=== PATIENT | male | born 1950 | race Caucasian/White ===

== ENCOUNTER 2018-01-29 11:35 | Emergency (ER) | payer MEDICARE, BC ==
[2018-01-29 12:09] VITALS: RESP 18
--- NOTE | 2018-01-29 12:42 | ED ---
General Adult HPI - General Chief complaint: Recheck/Abnormal Lab/Rx Stated complaint: Blood thinner is to thin Time Seen by Provider: 01/29/18 12:00 Source: patient, RN notes reviewed Mode of arrival: ambulatory Limitations: no limitations - History of Present Illness Initial comments: This is a 67-year-old male who presents to the emergency department stating that he was contacted by his doctor because his INR was elevated. Patient states the did not tell him how high his INR was. Patient states he has had no symptoms at all per patient denies any sites of bleeding. Patient denies any bruising. Patient denies any black or bloody stools. Patient denies any difficulty breathing or shortness of breath patient denies any headache. - Related Data Home Medications Medication Instructions Recorded Confirmed Metoprolol Succinate [Toprol Xl] 50 mg PO DAILY 01/29/18 01/29/18 Omeprazole [PriLOSEC] 20 mg PO AC-BID 01/29/18 01/29/18 Warfarin [Coumadin] 10 mg PO HS 01/29/18 01/29/18 Allergies Allergy/AdvReac Type Severity Reaction Status Date / Time codeine Allergy Unknown Verified 01/29/18 12:54 Review of Systems ROS Statement: Those systems with pertinent positive or pertinent negative responses have been documented in the HPI. ROS Other: All systems not noted in ROS Statement are negative. Past Medical History Past Medical History: Atrial Fibrillation, COPD, Hyperlipidemia, Hypertension History of Any Multi-Drug Resistant Organisms: None Reported Past Surgical History: Hernia Repair Past Psychological History: No Psychological Hx Reported Smoking Status: Current every day smoker Past Alcohol Use History: Occasional Past Drug Use History: None Reported General Exam - General Exam Comments Initial Comments: GENERAL: Patient is well-developed and well-nourished. Patient is nontoxic and well- hydrated and is in no acute distress. ENT: Neck is soft and supple. No significant lymphadenopathy is noted. Oropharynx is clear. Moist mucous membranes. Neck has full range of motion without eliciting any pain. EYES: The sclera were anicteric and conjunctiva were pink and moist. Extraocular movements were intact and pupils were equal round and reactive to light. Eyelids were unremarkable. PULMONARY: Unlabored respirations. Good breath sounds bilaterally. No audible rales rhonchi or wheezing was noted. CARDIOVASCULAR: There is a regular rate and rhythm without any murmurs gallops or rubs. ABDOMEN: Soft and nontender with normal bowel sounds. SKIN: Skin is clear with no lesions or rashes and otherwise unremarkable. NEUROLOGIC: Patient is alert and oriented x3. Cranial nerves II through XII are grossly intact. Motor and sensory are also intact. Normal speech, volume and content. Symmetrical smile. MUSCULOSKELETAL: Normal extremities with adequate strength and full range of motion. LYMPHATICS: No significant lymphadenopathy is noted PSYCHIATRIC: Normal psychiatric evaluation. Limitations: no limitations Course Vital Signs 01/29/18 12:05 Temperature 98.3 F Pulse Rate 52 L Respiratory 18 Rate Blood Pressure 127/80 O2 Sat by Pulse 96 Oximetry Medical Decision Making - Medical Decision Making INR is greater than 10 psychiatric the patient vitamin K I did check with Dr. Asad latham he was in agreement with this he was. Patient is to follow-up with Dr. minor on Thursday - Lab Data Result diagrams: 01/29/18 12:30 01/29/18 12:30 Lab Results 01/29/18 01/29/18 01/29/18 Range/Units 12:30 12:30 12:30 WBC 6.0 (3.8-10.6) k/uL RBC 5.19 (4.30-5.90) m/uL Hgb 15.8 (13.0-17.5) gm/dL Hct 46.3 (39.0-53.0) % MCV 89.2 (80.0-100.0) fL MCH 30.4 (25.0-35.0) pg MCHC 34.1 (31.0-37.0) g/dL RDW 14.2 (11.5-15.5) % Plt Count 157 (150-450) k/uL Neutrophils % 58 % Lymphocytes % 28 % Monocytes % 7 % Eosinophils % 4 % Basophils % 1 % Neutrophils # 3.5 (1.3-7.7) k/uL Lymphocytes # 1.7 (1.0-4.8) k/uL Monocytes # 0.4 (0-1.0) k/uL Eosinophils # 0.2 (0-0.7) k/uL Basophils # 0.1 (0-0.2) k/uL PT 100.6 H (9.0-12.0) sec INR >10.0 H* (<1.2) APTT 42.9 H (22.0-30.0) sec Sodium 143 (137-145) mmol/L Potassium 4.4 (3.5-5.1) mmol/L Chloride 110 H (98-107) mmol/L Carbon Dioxide 25 (22-30) mmol/L Anion Gap 8 mmol/L BUN 17 (9-20) mg/dL Creatinine 0.87 (0.66-1.25) mg/dL Est GFR (CKD-EPI)AfAm >90 (>60 ml/min/1.73 sqM) Est GFR (CKD-EPI)NonAf >90 (>60 ml/min/1.73 sqM) Glucose 102 H (74-99) mg/dL Calcium 9.3 (8.4-10.2) mg/dL Total Bilirubin 0.3 (0.2-1.3) mg/dL AST 29 (17-59) U/L ALT 31 (21-72) U/L Alkaline Phosphatase 51 (38-126) U/L Total Protein 7.9 (6.3-8.2) g/dL Albumin 4.1 (3.5-5.0) g/dL Disposition Clinical Impression: Coagulopathy Disposition: HOME SELF-CARE Condition: Good Instructions: Warfarin (By mouth) Additional Instructions: Patient should hold his Coumadin until he follows up with his physician on Thursday. Is patient prescribed a controlled substance at d/c from ED?: No Referrals: Janine Chau MD [Primary Care Provider] - 1-2 days Time of Disposition: 14:07
[2018-01-29 12:52] LABS: Basophils # (A) 0.1 k/uL (0-0.2); Basophils % (A) 1 %; Eosinophils # (A) 0.2 k/uL (0-0.7); Eosinophils % (A) 4 %; HCT 46.3 % (39.0-53.0); HGB 15.8 gm/dL (13.0-17.5); Lymphocytes # (A) 1.7 k/uL (1.0-4.8); Lymphocytes % (A) 28 %; MCH 30.4 pg (25.0-35.0); MCHC 34.1 g/dL (31.0-37.0); MCV 89.2 fL (80.0-100.0); Mean Platelet Volume 8.5; Monocytes # (A) 0.4 k/uL (0-1.0); Monocytes % (A) 7 %; Neutrophils # (A) 3.5 k/uL (1.3-7.7); Neutrophils % (A) 58 %; Platelet Count 157 k/uL (150-450); RBC 5.19 m/uL (4.30-5.90); RDW 14.2 % (11.5-15.5)
[2018-01-29 13:03] LABS: ALT 31 U/L (21-72); AST 29 U/L (17-59); Albumin 4.1 g/dL (3.5-5.0); Alkaline Phosphatase 51 U/L (38-126); Anion Gap 8 mmol/L; Blood Urea Nitrogen 17 mg/dL (9-20); Calcium 9.3 mg/dL (8.4-10.2); Carbon Dioxide 25 mmol/L (22-30); Chloride 110 mmol/L (98-107); Glucose 102 mg/dL (74-99); Potassium 4.4 mmol/L (3.5-5.1); Sodium 143 mmol/L (137-145); Total Bilirubin 0.3 mg/dL (0.2-1.3); Total Protein 7.9 g/dL (6.3-8.2)
[2018-01-29 13:39] LABS: Partial Thromboplastin Time 42.9 sec (22.0-30.0); Prothrombin Time 100.6 sec (9.0-12.0)
[2018-01-29 13:48] LABS: INR >10.0 (<1.2)
[2018-01-29] MEDS ORDERED: PHYTONADIONE ORAL 5 MG/5 ML ORAL.SYRG PO STA (14:05)
[2018-01-29 14:46] VITALS: BP 129/85; PULSE 59; TEMP 97.7
== END 2018-01-29 14:46 | disposition home or self-care (01) ==
LOC: EC 11:35
DX: D68.9 Coagulation defect, unspecified (principal); I48.91 Unspecified atrial fibrillation; I10 Essential (primary) hypertension; F17.200 Nicotine dependence, unspecified, uncomplicated; Z88.5 Allergy status to narcotic agent; Z79.01 Long term (current) use of anticoagulants; Z79.899 Other long term (current) drug therapy
CPT/HCPCS: 36415; 80053; 85025; 85610; 85730; 99283

== ENCOUNTER → 2018-03-06 | Outpatient (CLI) | payer MEDICARE, BC ==
--- NOTE | 2018-03-07 10:29 | MR ---
EXAMINATION TYPE: MR cervical spine wo con DATE OF EXAM: 03/06/2018 COMPARISON: None HISTORY: 67-year-old male cramping in back and Abdominal Pain TECHNIQUE: Multiplanar, multisequence images of the cervical spine were acquired. FINDINGS: No craniocervical junction abnormalities, predental space widening, or prevertebral soft tissue swell ing. Reversal of the normal cervical lordosis but with preserved alignment. Mild to moderate multilevel degenerative disc disease with variable disc desiccation and disc osteoph yte complex formation. Multiple levels of ligamentum flavum thickening with hypertrophic facet degenerative change and addit ional uncovertebral joint arthropathy. No suspicious bone marrow replacement. At C2-C3, mild facet arthropathy without canal or foraminal stenosis. At C3-C4, broad-based disc osteophyte complex causes mild spinal canal stenosis with minimal abutment on the ventral cord. There is uncovertebral joint and facet degenerative change mildly narrowing the neuroforamen. At C4-C5, uncovertebral joint and facet degenerative change contributes to moderate left and mild rig ht neuroforaminal stenosis without spinal canal stenosis. At C5-C6, broad-based disc osteophyte complex with uncovertebral joint and facet degenerative change. Additional ligamentum flavum thickening. Changes result in moderate bilateral neuroforaminal stenosi s with mild overall spinal canal stenosis but no cord compression. At C6-C7, similar changes are present with moderate right and telw-bg-duprldci left neuroforaminal st enosis. Mild spinal canal stenosis without cord compression or cord deformity. At C7-T1, mild posterior disc bulge without significant canal or foraminal stenosis. Mild right-sided facet arthropathy is present. No prevertebral or paravertebral soft tissue abnormality. IMPRESSION: 1. Mild to moderate multilevel degenerative disc disease with disc osteophyte complex formation and d isc desiccation as well as ligamentum flavum thickening and facet/uncovertebral joint arthropathy thr oughout. 2. Changes result in mild spinal canal stenoses at C3-C4, C5-C6, and C6-C7. There may be abutment of the ventral cord at all these levels but no cord compression or canal compromise. 3. Variable mild neuroforaminal stenoses as outlined above, moderate on the left at C4-C5, on both si hue at C5-C6 and on the right at C6-C7.
== END ==
LOC: RADMRIMAIN 09:42
PROVIDERS: ATTEND Physician Assistant Medical
DX: M48.02 Spinal stenosis, cervical region (principal); M99.71 Connective tissue and disc stenosis of intervertebral foramina of cervical region; M50.30 Other cervical disc degeneration, unspecified cervical region; M46.92 Unspecified inflammatory spondylopathy, cervical region
CPT/HCPCS: 72141

== ENCOUNTER → 2018-04-09 | Outpatient (CLI) | payer MEDICARE, BC ==
[2018-04-09 09:22] LABS: INR 1.7 (<1.2); Partial Thromboplastin Time 31.4 sec (22.0-30.0); Prothrombin Time 16.8 sec (9.0-12.0)
[2018-04-09 16:19] LABS: Calcium 9.2 mg/dL (8.7-10.3); Magnesium 1.8 mg/dL (1.5-2.4)
[2018-04-09 16:28] LABS: T4, Free (Free Thyroxine) 0.9 ng/dL (0.80-1.80)
== END ==
LOC: LABWHC1 04-08 11:17
PROVIDERS: ATTEND Psychiatry & Neurology Neurology
DX: M62.81 Muscle weakness (generalized) (principal); M79.10 Myalgia, unspecified site; R25.2 Cramp and spasm; R53.83 Other fatigue
CPT/HCPCS: 36415; 82306; 82310; 82533; 82550; 82607; 83735; 84439; 84443; 85610; 85730

== ENCOUNTER → 2018-04-30 | Outpatient (CLI) | payer MEDICARE, BC ==
--- NOTE | 2018-05-05 09:44 | P.ARTDOP ---
Arterial Doppler LOWER EXTREMITY ARTERIAL DOPPLER: DATE OF SERVICE: 04/30/2018 Reason for study: Bilateral leg pain. Doppler waveforms: Multiphasic bilaterally throughout. Pulse volume recording: []. Pressure gradients: None. Ankle-brachial indices: Greater than 1 bilaterally. Toe pressures: [] on the right, [] on the left Impression: Normal study.
== END ==
LOC: RADUSWWP 13:40
PROVIDERS: ATTEND Family Medicine
DX: M79.604 Pain in right leg (principal); M79.605 Pain in left leg; R25.2 Cramp and spasm
CPT/HCPCS: 93922

== ENCOUNTER → 2018-07-21 | Outpatient (CLI) | payer MEDICARE, BC ==
[2018-07-21 13:31] LABS: HGB 14.5 gm/dL (13.0-17.5); MCH 29.1 pg (25.0-35.0); MCHC 31.5 g/dL (31.0-37.0); MCV 92.3 fL (80.0-100.0); Platelet Count 166 k/uL (150-450); RBC 4.99 m/uL (4.30-5.90); RDW 14.5 % (11.5-15.5); WBC 6.1 k/uL (3.8-10.6)
[2018-07-21 13:41] LABS: Anion Gap 6 mmol/L; Blood Urea Nitrogen 16 mg/dL (9-20); Carbon Dioxide 26 mmol/L (22-30); Chloride 109 mmol/L (98-107); Magnesium 1.9 mg/dL (1.6-2.3); Potassium 4.8 mmol/L (3.5-5.1); Sodium 141 mmol/L (137-145)
== END | disposition home or self-care (01) ==
LOC: LABPAT 12:09
PROVIDERS: ATTEND Internal Medicine Interventional Cardiology
DX: Z01.812 Encounter for preprocedural laboratory examination (principal); I48.1 Persistent atrial fibrillation
CPT/HCPCS: 36415; 80051; 82565; 83735; 84520; 85027

== ENCOUNTER 2018-07-28 07:55 | Day surgery (SDC) | payer BC, MEDICARE ==
[2018-07-26 09:51] VITALS: BMI 35.2
[~2018-07-28 07:55] MED LIST: ALPRAZolam 0.25 MG TAB PO PRN; ALPRAZolam 0.5 MG TAB PO PRN; ASPIRIN 325 MG TAB PO STA; ATORVASTATIN 80 MG TAB PO STA; NITROGLYCERIN SL TABS 0.4 MG TAB SUBLINGUAL PRN; SODIUM CHLORIDE 0.9% 1,000 ML in EMPTY BAG 1 BAG IV ONE
[2018-07-28 08:19] VITALS: TEMP 97.9
[2018-07-28] MEDS ORDERED: HEPARIN SODIUM 1,000 UN/ML (10ML VL) ONE (08:26)
[2018-07-28] MEDS ORDERED: VERAPAMIL 2.5 MG/ML 2 ML AMP ONE (08:26)
[2018-07-28] MEDS ORDERED: LIDOCAINE 1% INJ 10MG/ML (20 ML MDV) ONE (08:26)
[2018-07-28] MEDS ORDERED: fentaNYL (PF) 50 MCG/ML 2 ML AMP ONE (08:26)
[2018-07-28 08:48] LABS: Prothrombin Time 10.9 sec (9.0-12.0)
[2018-07-28] MEDS ORDERED: LIDOCAINE 1% INJ 10MG/ML (20 ML MDV) SQ ONE (09:07)
[2018-07-28] MEDS ORDERED: fentaNYL (PF) 50 MCG/ML 2 ML AMP IVP ONE (09:07)
[2018-07-28] MEDS ORDERED: VERAPAMIL SYRINGE (5 MG/10 ML) INTRAARTER ONE (09:09)
[2018-07-28] MEDS ORDERED: HEPARIN SODIUM 1,000 UN/ML (10ML VL) IV ONE (09:15)
[2018-07-28] MEDS ORDERED: IOPAMIDOL-370 125ML BTL INJ ONE (09:32)
[2018-07-28] MEDS ORDERED: RX INFO: IV CONTRAST WAS GIVEN 1 EACH MISC MISCELLANE PRN (09:35)
[2018-07-28] MEDS ORDERED: SODIUM CHLORIDE 0.9% 1,000 ML IV SCH (09:45)
[2018-07-28] MEDS ORDERED: WARFARIN 5 MG TAB PO SCH (09:45)
[2018-07-28 10:20] VITALS: RESP 18
--- NOTE | 2018-07-28 10:49 | CC ---
CARDIAC CATHETERIZATION REPORT Mr. Perez is a 67-year-old male with known history of hypertension, history of chronic tobacco use and chronic persistent atrial fibrillation, who has been complaining of progressive dyspnea. He underwent a myocardial perfusion imaging that revealed impaired left ventricular systolic function with inferior wall defect. In view of that, recommendations were made regarding cardiac catheterization. The procedure as well as the risks and complications were discussed with the patient who is in full understanding and agreement. 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 Using Xylocaine anesthesia in the Seldinger technique a 6-[place]izen [place] sheath was introduced in the right radial artery. Selective right and left coronary angiography was performed using 5- [place] 3.5 bend right and left Chapin catheter. Multiple views of the coronary artery including hemiaxial views were obtained. Following that 5-[place]izen [place] tight pigtail catheter was introduced in the left ventricle and a 30-degree PAUL view of the left ventricle was obtained. Following that, catheter and sheaths were removed. Hemostasis was obtained with deployment of a TR band. There was no immediate complication. The patient was returned to room in stable condition. Of note, the patient received 5000 units of intravenous heparin as well as intra-arterial verapamil. FINDINGS: LEFT MAIN: This is a large-sized vessel bifurcating in left circumflex, left anterior descending artery. Left main coronary artery has no evidence of high-grade stenosis. LEFT ANTERIOR DESCENDING ARTERY: This is a large-sized vessel reaching toward the apex with a wraparound apex segment giving rise to a large diagonal branch proximally. The left anterior descending artery has mild intimal disease of 10% to 20% in the mid segment without any evidence of high-grade stenosis. LEFT CIRCUMFLEX: This is a codominant vessel large in caliber giving rise to a very proximal obtuse marginal branch distally bifurcating into PDA and posterolateral segment and branches. The left circumflex as well as branches have no evidence of obstructive coronary artery disease. RIGHT CORONARY ARTERY: This is a moderately-sized codominant vessel giving rise to a PDA. The right coronary artery in mid segment has 20% to 30% plaque without any evidence of high-grade stenosis. LEFT VENTRICULOGRAM: Left ventriculogram is performed in 30-degree PAUL view revealed global hypokinesis with ejection fraction of 35% to 40% There was no significant mitral regurgitation. HEMODYNAMICS: There was no gradient across the aortic valve. The left ventricular end- diastolic pressure was 8 to 10 mmHg. CONCLUSION: 1. Mild coronary disease involving the LAD and the right coronary artery. 2. Moderately severely impaired left ventricular systolic function. RECOMMENDATION: In view of finding anatomy, the etiology of his cardiomyopathy appears to be nonischemic. I will recommend maximizing his medical therapy and depending on his progress, further recommendation will be made. Those findings and recommendation were discussed with the patient and his family who are in full understanding and agreement. Duration of procedure is 16 minutes. MMODL / IJN: [id number] /
[2018-07-28 11:29] VITALS: BP 138/72; PULSE 85
[2018-07-28] MEDS ORDERED: BACLOFEN 10 MG TAB PO SCH (16:00)
[2018-07-28] MEDS ORDERED: NON-FORMULARY DRUG (Omeprazole 20 MG) PO SCH (17:30)
[2018-07-29] MEDS ORDERED: METOPROLOL SUCCINATE (ER) 50 MG TAB.ER.24H PO SCH (09:00)
[2018-07-29] MEDS ORDERED: MULTIVITAMINS, THERA 1 EACH TAB PO SCH (12:00)
[2018-07-31] MEDS ORDERED: WARFARIN 2 MG TAB PO SCH (09:35)
== END 2018-07-28 14:25 | disposition home or self-care (01) ==
LOC: CATHCVL 07:55
PROVIDERS: ATTEND Internal Medicine Interventional Cardiology
DX: I25.10 Atherosclerotic heart disease of native coronary artery without angina pectoris (principal); I48.1 Persistent atrial fibrillation; Z79.01 Long term (current) use of anticoagulants; Z79.899 Other long term (current) drug therapy; F17.210 Nicotine dependence, cigarettes, uncomplicated; I10 Essential (primary) hypertension; Z88.5 Allergy status to narcotic agent; I42.8 Other cardiomyopathies
CPT/HCPCS: 85610; 93458

== ENCOUNTER → 2019-10-04 | Outpatient (CLI) | payer MEDICARE, BC ==
[2019-10-04 10:45] LABS: African American GFR (CKD) >90 (>60 ml/min/1.73 sqM); Blood Urea Nitrogen 19 mg/dL (9-20); Non-African American GFR(CKD) 87 (>60 ml/min/1.73 sqM)
--- NOTE | 2019-10-04 12:32 | CT ---
EXAMINATION TYPE: CT angio chest DATE OF EXAM: 10/04/2019 COMPARISON: Prior CTA dated 05/21/2009 HISTORY: Follow up Aneurysm CT DLP: 674.9 mGycm Automated exposure control for dose reduction was used. CONTRAST: CTA scan of the thorax is performed with IV Contrast, patient injected with 100 mL of Isovue 370, pul monary embolism protocol. MIP images are created and reviewed. 3D reconstructed images are created on an independent workstation and reviewed. FINDINGS: LUNGS: The lungs are grossly clear, there is no concerning parenchymal mass or nodule identified. T here is no pleural effusion or pneumothorax seen. The tracheobronchial tree is patent. AORTA: The root of the aorta measures approximately 4.2 cm which is same as on prior exam, proximal ascending aorta measures 4.4 cm, proximal descending aorta 3.2 cm, the aorta measures at the level of the aortic hiatus approximately 3 cm.. MEDIASTINUM: There is satisfactory enhancement of the pulmonary artery and its branches, there is no CT evidence for pulmonary embolism. There are no greater than 1 cm hilar or mediastinal lymph nodes. No pericardial effusion is seen. The heart is enlarged. Suspect there is left atrial enlargement. Pulmonary artery is dilated, correlate for possible pulmonary artery hypertension. OTHER: There is an exophytic cyst at the upper pole the right kidney measuring 6.7 cm. Adrenal gland s are somewhat prominent appearance. IMPRESSION: AORTIC ANEURYSM. CORRELATE FOR PULMONARY ARTERY HYPERTENSION. CARDIOMEGALY. THERE MAY BE ADRENAL HYPE RPLASIA.
== END | disposition home or self-care (01) ==
LOC: RADCTMAIN 09:56
PROVIDERS: ATTEND Internal Medicine Interventional Cardiology
DX: I51.7 Cardiomegaly (principal); I77.810 Thoracic aortic ectasia; Z88.5 Allergy status to narcotic agent
CPT/HCPCS: 82565; 84520; 71275; 36415; Q9967

== ENCOUNTER → 2020-10-15 | Outpatient (CLI) | payer MEDICARE, BC ==
[2020-10-15 12:10] LABS: African American GFR (CKD) >90 (>60 ml/min/1.73 sqM); Blood Urea Nitrogen 21 mg/dL (9-20); Non-African American GFR(CKD) 81 (>60 ml/min/1.73 sqM)
--- NOTE | 2020-10-15 16:28 | CT ---
CT CHEST FOR PULMONARY EMBOLISM. EXAMINATION TYPE: CT angio chest DATE OF EXAM: 10/15/2020 INDICATION: Thoracic aortic aneurysm. Irregular heartbeat per patient. CT DLP: 956.2 mGycm, Automated exposure control for dose reduction was used. CONTRAST: Patient injected with 100 mL of Isovue 370. COMPARISON: 10/04/2019 TECHNIQUE: CT of the chest is performed on a spiral scan at 2 mm thick sections. Study is performed with intravenous contrast timed for evaluation of thoracic aneurysm. This will limit additional port ions of the evaluation. 3-D MIP images reconstructed by the technologist are reviewed on the compute r in the coronal and sagittal planes. FINDINGS: No mediastinal or hilar adenopathy enlarged by CT criteria is evident. The main pulmonary artery di ameter at the bifurcation is 2.6 cm. Aorta: The aorta at the aortic root measures 4.1 cm. Previous measurement 4.2 cm. Ascending thoracic aorta at the level of the main pulmonary artery is 4.2 cm. Previous measurement 4.4 cm. Transverse di mension aortic arch measures 3.1 cm. The aorta at the diaphragm measures 2.9 cm. Previous measurement 3.0 cm. There is a 0.4 cm nodule within the periphery of the right anterior lung. Series 4 image 15. This was present previously. Limited CT section through the upper abdomen e. There is a large cyst again evident at the right toby l superior pole measuring 6.6 cm and 11 Hounsfield units IMPRESSIONS: 1. Stable thoracic aortic aneurysm. 2. Stable right lung nodule
== END | disposition home or self-care (01) ==
LOC: RADCTMAIN 11:01
PROVIDERS: ATTEND Internal Medicine Interventional Cardiology
DX: I71.2 Thoracic aortic aneurysm, without rupture (principal); R91.1 Solitary pulmonary nodule
CPT/HCPCS: 82565; 84520; 71275; 36415; Q9967

== ENCOUNTER → 2021-10-22 | Outpatient (CLI) | payer MEDICARE, BC ==
--- NOTE | 2021-10-22 13:33 | CT ---
EXAMINATION TYPE: CT angio chest DATE OF EXAM: 10/22/2021 COMPARISON: 10/15/2020 HISTORY: 71-year-old male I71.2, Thoracic aortic aneurysm w/o rupture TECHNIQUE: Contiguous axial scanning of the chest performed without and with IV Contrast, patient inj ected with 100 mL of Isovue 370. Coronal/sagittal MIP reconstructions performed. 3-D reconstructions generated on dedicated workstation. CT DLP: 1150.80 mGycm Automated exposure control for dose reduction was used. FINDINGS: The heart is borderline to mildly enlarged. Prominent epicardial fat pad. No pericardial effusion. Mildly aneurysmal aortic root at 4.0 cm, unchanged. Aneurysmal ascending aorta and 4.5 cm, unchanged. Mild atherosclerotic arch calcifications with conventional branching anatomy. Upper descending thoracic aorta aneurysmal at 3.7 cm. Lower descending thoracic aorta aneurysmal and 3.0 cm, unchanged. No evidence for aortic dissection. Large caliber to the main right and left pulmonary arteries measuring up to 3.7 cm. No thoracic lymphadenopathy by CT size criteria. Mild centrilobular emphysema. Some subpleural hazy density posteriorly suggesting dependent atelectas is. Stable 4 mm posterior right midlung pulmonary nodule along the major fissure, axial image 61. 5 mm pulmonary nodule superior segment right lower lobe, axial image 65 not clearly seen previously. This can be reassessed at follow-up. 4 mm pulmonary nodule left mid lung along the major fissure unchanged. Focal patchy opacity inferior lingula is new. This could represent atelectasis or developing infiltra te. Correlate with patient's symptoms. Mild diffuse central bronchial wall thickening. Visualized upper abdomen shows stable nodular thickening of the left adrenal gland suggesting underly ing adrenal hyperplasia. Partially visualized 6.5 cm cyst upper pole right kidney. Anterior splenule again noted. Bones: Anterior endplate spondylosis mid and lower thoracic spine with mild to moderate degenerative disc disease. IMPRESSION: 1. STABLE MILD ANEURYSM AORTIC ROOT AT 4.0 CM. UNCHANGED ANEURYSM ASCENDING AORTA AT 4.5 CM AND DESCE NDING THORACIC AORTA MEASURING UP TO 3.7 CM SUPERIORLY. 3.0 CM DISTALLY. 2. BORDERLINE TO MILD CARDIOMEGALY. 3. COPD WITH MILD EMPHYSEMA. SUSPECT UNDERLYING PULMONARY ARTERIAL HYPERTENSION. 4. A FEW SCATTERED PULMONARY NODULES ARE LARGELY STABLE. HOWEVER, A 5 MM SUPERIOR SEGMENT RIGHT LOWER LOBE PULMONARY NODULE IS NOT CLEARLY SEEN ON THE PRIOR STUDY. REASSESS AT A 6 MONTH FOLLOW-UP.
== END | disposition home or self-care (01) ==
LOC: RADCTMAIN 10:52
PROVIDERS: ATTEND Internal Medicine Interventional Cardiology
DX: I71.2 Thoracic aortic aneurysm, without rupture (principal); J43.9 Emphysema, unspecified
CPT/HCPCS: 82565; 84520; 71275; 36415; Q9967

== ENCOUNTER → 2023-01-20 | Outpatient (CLI) | payer MEDICARE, BC ==
[2023-01-19 14:45] LABS: African American GFR (CKD) >90 (>60 ml/min/1.73 sqM); Blood Urea Nitrogen 20 mg/dL (9-20); Non-African American GFR(CKD) 81 (>60 ml/min/1.73 sqM)
--- NOTE | 2023-01-20 08:34 | CT ---
EXAMINATION TYPE: CT angio chest CT DLP: 1453.8 mGycm, Automated exposure control for dose reduction was used. DATE OF EXAM: 01/19/2023 4:15 PM COMPARISON: CT most recent 10/22/2021. CLINICAL INDICATION:Male, 72 years old with history of I71.2 THORACIC AORTIC ANEURYSM; f/u on thoraci c aneurysm- monitoring aneurysm. TECHNIQUE/CONTRAST: CTA scan of the thorax is performed without and with IV Contrast, patient injected with 100 cc mL of Isovue 370, MIP images are created and reviewed these are created on a separate workstation.. FINDINGS: Lungs/Pleura: No evidence of focal consolidation, pleural effusion or pneumothorax. Similar anterior right upper lobe pulmonary nodule measuring 4 mm. Series 6 image 69. Stable intrafissural lymph node in the right upper lobe near the major fissure versus subpleural nodule measuring 5 mm series 6 image 76. Left intrafissural lymph node along the left major fissure series 6 image 64. Stable left lower lobe medial 5 mm pulmonary nodule series 6 image 81 Mild paraseptal and centrilobular emphysema cruz es. Airway: Large airways are patent. Heart: Mildly enlarged for size with mild to moderate coronary artery atherosclerosis. Vasculature: No evidence for intramural hematoma on noncontrast imaging. No evidence of intimal flap to suggest dissection. No aneurysm identified. Scattered atherosclerotic disease. Mediastinum: No gross evidence of adenopathy. Musculoskeletal: No acute osseous abnormalities Soft Tissues: Unremarkable. Lower neck: No significant findings. Upper Abdomen: Simple appearing right renal cyst. Similar thickening of the adrenal glands left great er than right. IMPRESSION: 1. Ascending thoracic aorta ectasia up to 4.6 cm. No evidence for aneurysm. No evidence for dissecti on or pulmonary embolus. 2. Stable pulmonary nodules no new or enlarging pulmonary nodules. 3. Mild emphysema changes. 4. Cardiomegaly with mild to moderate coronary artery atherosclerosis. 5. Similar probable adenomatous hypertrophy changes of the adrenal glands.
== END | disposition home or self-care (01) ==
LOC: RADCTMAIN 13:03
PROVIDERS: ATTEND Internal Medicine Interventional Cardiology
DX: I71.20 Thoracic aortic aneurysm, without rupture, unspecified (principal); R91.8 Other nonspecific abnormal finding of lung field; J43.2 Centrilobular emphysema; I25.10 Atherosclerotic heart disease of native coronary artery without angina pectoris; I51.7 Cardiomegaly
CPT/HCPCS: 82565; 84520; 71275; 36415; Q9967

== ENCOUNTER 2023-07-14 07:13 | Day surgery (SDC) | payer MEDICARE, BC ==
[~2023-07-14 07:13] MED LIST changes: -ATORVASTATIN 80 MG TAB PO STA; -SODIUM CHLORIDE 0.9% 1,000 ML in EMPTY BAG 1 BAG IV ONE; +SODIUM CHLORIDE 0.9% 1,000 ML in EMPTY BAG 1 BAG IV SCH
[2023-07-14 07:34] LABS: Glucose,Whole Blood 124 mg/dL (70-110)
[2023-07-14 07:45] LABS: Basophils # (A) 0.1 k/uL (0-0.2); Basophils % (A) 1 %; Eosinophils # (A) 0.3 k/uL (0-0.7); Eosinophils % (A) 4 %; HCT 50.7 % (39.0-53.0); HGB 16.3 gm/dL (13.0-17.5); Lymphocytes % (A) 27 %; MCH 28.9 pg (25.0-35.0); MCHC 32.1 g/dL (31.0-37.0); MCV 89.9 fL (80.0-100.0); Mean Platelet Volume 9.6; Monocytes # (A) 0.4 k/uL (0-1.0); Monocytes % (A) 6 %; Neutrophils # (A) 4.3 k/uL (1.3-7.7); Neutrophils % (A) 59 %; Platelet Count 175 k/uL (150-450); RBC 5.64 m/uL (4.30-5.90); RDW 15.1 % (11.5-15.5); WBC 7.3 k/uL (3.8-10.6)
[2023-07-14 07:49] LABS: INR 1.4 (<1.2); Prothrombin Time 14.5 sec (10.0-12.5)
[2023-07-14 07:59] VITALS: RESP 16; TEMP 97.9
[2023-07-14 08:03] LABS: African American GFR (CKD) 85 (>60 ml/min/1.73 sqM); Anion Gap 7 mmol/L; Blood Urea Nitrogen 24 mg/dL (9-20); Calcium 9.2 mg/dL (8.4-10.2); Carbon Dioxide 25 mmol/L (22-30); Chloride 108 mmol/L (98-107); Glucose 102 mg/dL (74-99); Non-African American GFR(CKD) 74 (>60 ml/min/1.73 sqM); Potassium 4.7 mmol/L (3.5-5.1); Sodium 140 mmol/L (137-145)
[2023-07-14] MEDS: SODIUM CHLORIDE 0.9% 1,000 ML IV ONE (08:17)
[2023-07-14] MEDS ORDERED: fentaNYL (PF) 50 MCG/ML 2 ML AMP ONE (08:54)
[2023-07-14] MEDS ORDERED: LIDOCAINE 1% INJ 10MG/ML (20 ML MDV) ONE (08:54)
[2023-07-14] MEDS ORDERED: VERAPAMIL 2.5 MG/ML 2 ML AMP ONE (08:54)
[2023-07-14] MEDS ORDERED: HEPARIN SODIUM 1,000 UN/ML (10ML VL) ONE (08:54)
[2023-07-14] MEDS: LIDOCAINE 1% INJ 10MG/ML (20 ML MDV) SQ ONE (09:32)
[2023-07-14] MEDS: fentaNYL (PF) 50 MCG/1 ML VIAL IVP ONE (09:32)
[2023-07-14] MEDS: VERAPAMIL SYRINGE (5 MG/10 ML) INTRAARTER ONE (09:36)
[2023-07-14] MEDS: HEPARIN SODIUM 1,000 UN/ML (10ML VL) IVP ONE (09:40)
[2023-07-14] MEDS: NITROGLYCERIN 1000MCG/10ML SYRINGE INTRACORON ONE (09:52)
[2023-07-14] MEDS ORDERED: RX INFO: IV CONTRAST WAS GIVEN 1 EACH MISC MISCELLANE PRN (10:14)
[2023-07-14] MEDS ORDERED: SODIUM CHLORIDE 0.9% 1,000 ML IV SCH (10:15)
--- NOTE | 2023-07-14 10:22 | P.CARDCATH ---
Date of Procedure: 07/14/23 Description of Procedure: Cardiac Catheterization: The patient is a 72-year-old male with a known history of CAD, chronic tobacco use, chronic persistent atrial fibrillation who presented with exertional chest discomfort, increasing in frequency. Recommendations were made regarding cardiac catheterization, the risks and the complications were discussed with the patient who is in full understanding and agreement. 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 Using Xylocaine Anesthesia and modified Seldinger technique, a 6-[place] sheath was introduced in the right radial artery . Subsequently, selective coronary angiography was performed using a 5-[place] 3.5 bend Chapin catheter. Multiple views of the coronary artery including hemiaxial views were obtained. The 6 [place] pigtail catheter was used to cross the aortic valve and LVEDP was calculated. IFR measurement: After removing the catheters a 6 [place] 0.75 AL guiding catheter was introduced and after cannulating the right coronary ostium and Omni Doppler flow wire was positioned in the distal RCA and IFR was measured, averaging 0.98. Following that the wire was removed. Following that, catheter and sheath were removed. Hemostasis was obtained with deployment of vascular band . There was no immediate complication. Patient was returned to room in stable condition. Of note, the patient received a total of 5000 units of intravenous heparin as well as intra-arterial verapamil. Findings: Left main: This is a large size vessel, bifurcating into left anterior descending artery and left circumflex, left main has 10% plaque distally. LAD: This is a large size vessel, reaching to the apex, giving rise to a proximal large diagonal branch. The LAD has 10 to 20% plaque in the midsegment and there is a 10% plaque in the diagonal branch, the rest of the vessel has no high-grade stenosis Left circumflex: This is a codominant vessel giving rise to a very proximal obtuse marginal branch and distally bifurcating into PDA and PLV. The left circumflex and its branches have no obstructive disease RCA: This is a codominant vessel giving rise to a PDA. The mid right coronary artery has a tubular area of stenosis in the midsegment of 50 to 60% with no high-grade stenosis Left Ventriculogram: Not performed Hemodynamics: There was no gradient across aortic valve, LVEDP was 12-14 mmHg Conclusion: 1. Mild obstructive disease in the LAD 2. Moderate disease in the mid RCA with nonhemodynamically significant lesion by IFR 3. No significant obstructive disease in the left circumflex 4. Normal LVEDP Recommendations: The patient will continue on medical therapy, the importance of smoking cessation was discussed with him. The findings and the recommendations were discussed with the patient and the family and they were in full understanding and agreement. Duration of sedation is 25 minutes.
[2023-07-14 14:03] VITALS: BP 136/84; PULSE 71
[2023-07-14] MEDS ORDERED: PANTOPRAZOLE 40 MG TABLET PO SCH (17:30)
[2023-07-14] MEDS ORDERED: WARFARIN 5 MG TAB PO SCH (18:00)
[2023-07-15] MEDS ORDERED: lisinopriL 5 MG TAB PO SCH (09:00)
[2023-07-15] MEDS ORDERED: MULTIVITAMINS, THERA 1 EACH TAB PO SCH (09:00)
[2023-07-15] MEDS ORDERED: EZETIMIBE 10 MG TAB PO SCH (09:00)
[2023-07-15] MEDS ORDERED: VIT A,C & E-LUTEIN-MINERALS 1 EACH TAB PO SCH (09:00)
[2023-07-15] MEDS ORDERED: ISOSORBIDE MONONITRATE ER 30 MG TAB.ER.24H PO SCH (09:00)
[2023-07-15] MEDS ORDERED: METOPROLOL SUCCINATE (ER) 50 MG TAB.ER.24H PO SCH (09:00)
[2023-07-15] MEDS ORDERED: DAPAGLIFLOZIN PROPANEDIOL 5 MG TABLET PO SCH (09:00)
[2023-07-17] MEDS ORDERED: WARFARIN 2.5 MG TAB PO SCH (18:00)
== END 2023-07-14 14:09 | disposition home or self-care (01) ==
LOC: CATHCVL 07:13
PROVIDERS: ATTEND Internal Medicine Interventional Cardiology
DX: I25.10 Atherosclerotic heart disease of native coronary artery without angina pectoris (principal); I48.19 Other persistent atrial fibrillation; I73.9 Peripheral vascular disease, unspecified; I10 Essential (primary) hypertension; E78.5 Hyperlipidemia, unspecified; F17.210 Nicotine dependence, cigarettes, uncomplicated; Z79.899 Other long term (current) drug therapy
CPT/HCPCS: 93458; 93799; 80048; 85025; 85610; C1769 ×3; C1894; C1887; J2001; J1644; J3010; J2305

== ENCOUNTER → 2024-02-15 | Outpatient (CLI) | payer MEDICARE, BC ==
[2024-02-15 12:58] LABS: ALT 26 U/L (4-49); AST 29 U/L (17-59); African American GFR (CKD) >90 (>60 ml/min/1.73 sqM); Albumin 4.3 g/dL (3.5-5.0); Albumin/Globulin Ratio 1.3; Alkaline Phosphatase 52 U/L (38-126); Anion Gap 6 mmol/L; Blood Urea Nitrogen 15 mg/dL (9-20); Carbon Dioxide 27 mmol/L (22-30); Chloride 108 mmol/L (98-107); Globulin 3.4 g/dL; Glucose 96 mg/dL (74-99); Non-African American GFR(CKD) 82 (>60 ml/min/1.73 sqM); Potassium 4.4 mmol/L (3.5-5.1); Sodium 141 mmol/L (137-145); Total Bilirubin 0.6 mg/dL (0.2-1.3); Total Protein 7.7 g/dL (6.3-8.2)
[2024-02-15 16:02] LABS: Chol/HDL Ratio 3.23 Ratio; LDL Cholesterol,Calculated 59.5 mg/dL (0.0-131.0)
--- NOTE | 2024-02-15 16:54 | CT ---
EXAMINATION TYPE: CT angio chest without and with contrast DATE OF EXAM: 02/15/2024 1:57 PM COMPARISON: 01/19/2023 CLINICAL INDICATION: Male, 73 years old with history of I71.20 THORACIC AORTIC ANEURYSM WO RUP; Monit oring aneurysm, pulmonary nodules. TECHNIQUE/CONTRAST: CTA scan of the thorax is performed without and with IV Contrast, patient injected with 100 mL of Iso sylvia 370, MIP images are created and reviewed these are created on a separate workstation.. CT DLP: 1226.7 mGycm, Automated exposure control for dose reduction was used. FINDINGS: Lungs/Pleura: No evidence of focal consolidation, pleural effusion or pneumothorax. Right upper lobe pulmonary nodule now measuring 5 mm. C4 millimeters series 4 image 27. Stable intrafissural lymph nod e in the right upper lobe near the major fissure versus subpleural nodule measuring 5 mm Left intrafi ssural lymph node along the left major fissure . Stable left lower lobe medial 5 mm pulmonary nodule. Mild paraseptal and centrilobular emphysema changes. Airway: Large airways are patent. Heart: Mildly enlarged for size with mild to moderate coronary artery atherosclerosis. Vasculature: No evidence for intramural hematoma on noncontrast imaging. No evidence of intimal flap to suggest dissection. No aneurysm identified. Scattered atherosclerotic disease. Mediastinum: No gross evidence of adenopathy. Musculoskeletal: No acute osseous abnormalities Soft Tissues: Unremarkable. Lower neck: No significant findings. Upper Abdomen: Simple appearing right renal cyst. Similar thickening of the adrenal glands left great er than right. IMPRESSION: 1. Stable Ascending thoracic aorta ectasia up to 4.6 cm. No evidence for aneurysm. No evidence for d issection or pulmonary embolus. 2. Right upper lobe 5 mm pulmonary nodule continued surveillance with CT imaging recommended as this may be fractionally larger compared to 01/19/2023. 3. Mild emphysema changes. 4. Cardiomegaly with mild to moderate coronary artery atherosclerosis. 5. Similar probable adenomatous hypertrophy changes of the adrenal glands. [facility], , 02/15/2024 4:52 PM
== END | disposition home or self-care (01) ==
LOC: RADCTMAIN 11:57
PROVIDERS: ATTEND Internal Medicine Interventional Cardiology
DX: J43.9 Emphysema, unspecified (principal); I71.20 Thoracic aortic aneurysm, without rupture, unspecified; I10 Essential (primary) hypertension; E78.2 Mixed hyperlipidemia; I25.10 Atherosclerotic heart disease of native coronary artery without angina pectoris; I51.7 Cardiomegaly; N28.1 Cyst of kidney, acquired; R91.1 Solitary pulmonary nodule
CPT/HCPCS: 80061; 80053; 71275; 36415; Q9967

== ENCOUNTER → 2024-07-15 | Outpatient (CLI) | payer MEDICARE, BC ==
[2024-07-15 09:34] LABS: African American GFR (CKD) >90 (>60 ml/min/1.73 sqM); Blood Urea Nitrogen 18 mg/dL (9-20); Non-African American GFR(CKD) 88 (>60 ml/min/1.73 sqM)
--- NOTE | 2024-07-15 10:37 | CT ---
EXAMINATION TYPE: CT chest without contrast CT angio chest DATE OF EXAM: 07/15/2024 10:14 AM COMPARISON: 02/15/2024 CLINICAL INDICATION: Male, 73 years old with history of I71.20 THORACIC AORTIC ANEURYSM, WITHOUT RUPT URE; THORACIC AORTIC ANEURYSM TECHNIQUE/CONTRAST: Initial CT scan of the chest without IV contrast. Coronal and sagittal reconstructions performed. Sub sequent CTA scan of the thorax is performed with IV Contrast, patient injected with 100mL mL of Isovu e 300, 3-D reconstructions are created and reviewed; these are created on a separate workstation.. CT DLP: 1308.0 mGycm, Automated exposure control for dose reduction was used. FINDINGS: The heart is mildly enlarged without pericardial effusion. LAD and lesser degree of RCA coronary wolf ry calcifications are present. Mild aortic valve calcifications noted. Aortic root mildly aneurysmal 4.1 cm, unchanged. Ascending aorta aneurysmal 4.5 cm, unchanged. Mild atherosclerotic arch calcifications with conventional arch vessel branching anatomy. Ectatic upper descending thoracic aorta at 3.9 cm, unchanged. Mild aneurysm of the aorta at the thoracoabdominal junction up to 3.0 cm, unchanged. Large caliber main right and left pulmonary arteries measuring up to 3.7 cm suggesting underlying pul monary hypertension. No thoracic lymphadenopathy by CT size criteria. Mild emphysematous change. Scattered subpleural hazy and reticular densities especially in the mid an d lower lungs, suspected areas of mild fibrosis. Mild diffuse bronchial wall thickening. No consolida tion or pleural effusion. Low-density oval nodule measuring 2.4 cm left adrenal gland compatible with a benign lipid rich adren al adenoma. Partially visualized large upper pole cyst right kidney measuring up to 7.7 cm. Bones: DISH involving the mid and lower thoracic spine with mild multilevel degenerative disc disease . IMPRESSION: 1. Stable aneurysmal thoracic aorta (root 4.1 cm, ascending 4.5 cm, upper descending 2.9 cm, and thor acoabdominal junction 3.0 cm). 2. Mild cardiomegaly, COPD with mild emphysema, scattered interstitial scarring, and pulmonary arteri al hypertension. 3. Stable 2.4 cm lipid rich left adrenal adenoma and partially visualized large 7.7 cm cyst of the ri ght kidney. [facility], , 07/15/2024 10:35 AM
== END | disposition home or self-care (01) ==
LOC: RADCTMAIN 09:01
PROVIDERS: ATTEND Internal Medicine Interventional Cardiology
DX: I77.810 Thoracic aortic ectasia (principal); I51.7 Cardiomegaly; J43.9 Emphysema, unspecified; J44.9 Chronic obstructive pulmonary disease, unspecified; E27.8 Other specified disorders of adrenal gland; N28.1 Cyst of kidney, acquired
CPT/HCPCS: 82565; 84520; 71275; 36415; Q9967